=== PATIENT | male | born 1975 | race African-American/Black ===

== ENCOUNTER 2020-11-04 11:40 | Emergency (ER) | payer SELFPAY | END 2020-11-04 15:42 | disposition home or self-care (01) | LOC: ERS 11:40 | DX: M54.5 Low back pain (principal); F17.210 Nicotine dependence, cigarettes, uncomplicated; X50.1XXA Overexertion from prolonged static or awkward postures, initial encounter | CPT/HCPCS: 99283 ==

== ENCOUNTER 2020-11-27 02:52 | Emergency (ER) | payer SELFPAY ==
[2020-11-27] MEDS ORDERED: Ketorolac Tromethamine 30 MG/ML VIAL ONE (03:43)
[2020-11-27 07:11] LABS: ALT (SGPT) 37 U/L (8-55); AST (SGOT) 16 U/L (5-34); Albumin 4.2 g/dL (3.5-5.0); Alkaline Phosphatase 61 U/L (40-110); Anion Gap 14 mmol/L (10-20); BUN (Urea Nitrogen) 11 mg/dL (8.9-20.6); Bilirubin, Total 0.6 mg/dL (0.2-1.2); Calc. Creatinine Clearance 0 mL/min (70-130); Carbon Dioxide 25 mmol/L (22-29); Chloride 102 mmol/L (98-107); Globulin 3.7 g/dL (2.4-3.5); Glucose 133 mg/dL (70-105); Potassium 4.3 mmol/L (3.5-5.1); Protein, Total 7.9 g/dL (6.0-8.3); Sodium 137 mmol/L (136-145)
[2020-11-27 07:40] LABS: #Lymphocytes 0.7 thou/uL (1.20-3.40); #Monocytes 0.5 thou/uL (0.11-0.59); #Neutrophils 9.3 thou/uL (1.40-6.50); %Basophils 0.4 % (0.0-1.0); %Eosinophils 0.1 % (0.0-10.0); %Lymphocytes 6.3 % (21.0-51.0); %Monocytes 5.1 % (0.0-10.0); %Neutrophils 88.1 % (42.0-75.0); Hemoglobin 15.4 g/dL (14.0-18.0); Mean Corpuscular HGB CONC 35.6 g/dL (32.0-36.0); Mean Corpuscular Hemoglobin 34.2 pg (27.0-31.0); Mean Corpuscular Volume 95.9 fL (78.0-98.0); Mean Platelet Volume 7.6 fL (7.4-10.4); Platelet Count 201 thou/uL (130-400); RBC Distribution Width 12.3 % (11.5-14.5); Red Blood Cell (RBC) Count 4.51 mill/uL (4.70-6.10); White Blood Cell (WBC) Count 10.5 thou/uL (4.8-10.8)
== END 2020-11-27 06:16 | disposition left against medical advice (07) ==
LOC: ERS 02:52
DX: N17.9 Acute kidney failure, unspecified (principal); R50.9 Fever, unspecified; R51.9 Headache, unspecified; F17.210 Nicotine dependence, cigarettes, uncomplicated
CPT/HCPCS: 70450; 80053; 85025; 96374; J1885

== ENCOUNTER 2020-12-01 12:18 | Emergency (ER) | payer SELFPAY ==
[2020-12-01] MEDS ORDERED: diphenhydrAMINE 50 MG/ML VIAL ONE (13:17)
[2020-12-01] MEDS ORDERED: Acetaminophen 500 MG TAB ONE (13:17)
[2020-12-01] MEDS ORDERED: Metoclopramide HCl 10 MG/2 ML VIAL ONE (13:17)
== END 2020-12-01 14:28 | disposition home or self-care (01) ==
LOC: ERS 12:18
DX: R51.9 Headache, unspecified (principal); F17.210 Nicotine dependence, cigarettes, uncomplicated
CPT/HCPCS: 70450; 96374; 96375; J1200; J2765